=== PATIENT | male | born 2000 ===

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

== ENCOUNTER → 2022-03-25 | Outpatient (CLI) | payer BC | END | disposition home or self-care (01) | LOC: LAB 16:07 → LAB SHORT 16:07 → EDSEX 16:07 | DX: N39.0 Urinary tract infection, site not specified (principal) | CPT/HCPCS: 87077; 87086; 87186 ==